=== PATIENT | male | born 1980 | race American Indian/Alaskan Native ===

== ENCOUNTER 2017-02-20 03:04 | Emergency (ER) | payer BC, OTHER ==
[2017-02-20 09:10] VITALS: BP 138/74
[2017-02-20] MEDS ORDERED: XYLOCAINE TOPICAL 4% TP ONE (10:13)
[2017-02-20] MEDS ORDERED: PROCTOSOL-HC PR ONE (10:13)
--- NOTE | 2017-02-20 10:18 | Emergency Department Report ---
ED General Adult HPI - General Chief complaint: Rectal Pain Stated complaint: HEMORRHOID PAIN Time Seen by Provider: 02/20/17 09:08 Source: patient Mode of arrival: Ambulatory Limitations: No Limitations - History of Present Illness Initial comments: This is a 36-year-old male. He is previously unknown to me. He works as a driver lifter of sanitation truck. The patient presents to the ER with a painful hemorrhoid for 3 days. The pain is sharp. It increases with palpation. It decreases with rest. There is no trauma. There is no dyschezia. The patient denies receptive anal intercourse. He denies other complaints. -: Gradual Location: pelvis Severity scale (0 -10): 10 Quality: aching Consistency: constant Improves with: rest Worsens with: movement Associated Symptoms: denies other symptoms - Related Data Previous Rx's Medication Instructions Recorded Last Taken Type Cyclobenzaprine HCl [Flexeril 5 MG 5 mg PO TID PRN #21 tab 05/09/16 Unknown Rx TAB] Ibuprofen [Motrin 800 MG tab] 800 mg PO Q8HR PRN #30 tablet 05/09/16 Unknown Rx Hydrocortisone [Anucort-HC SUPPOS] 25 mg RC BID #20 supp.rect 02/20/17 Unknown Rx Lidocaine [Lidocaine GEL] 113 gm TP QID PRN #1 gel..gram. 02/20/17 Unknown Rx Allergies Allergy/AdvReac Type Severity Reaction Status Date / Time No Known Allergies Allergy Unverified 05/09/16 10:03 ED Review of Systems ROS: Stated complaint: HEMORRHOID PAIN Other details as noted in HPI Constitutional: denies: fever Eyes: denies: vision change ENT: denies: epistaxis Respiratory: denies: cough Cardiovascular: denies: chest pain Gastrointestinal: denies: abdominal pain, hematemesis, melena, hematochezia Genitourinary: as per HPI Musculoskeletal: denies: back pain Skin: lesions (rectal hemorrhoid) Neurological: denies: weakness Psychiatric: as per HPI ED Past Medical Hx - Past Medical History Previous Medical History?: No - Surgical History Past Surgical History?: No - Social History Smoking Status: Never Smoker Substance Use Type: None - Medications Home Medications: Home Medications Medication Instructions Recorded Confirmed Last Taken Type Cyclobenzaprine HCl [Flexeril 5 MG 5 mg PO TID PRN #21 tab 05/09/16 Unknown Rx TAB] Ibuprofen [Motrin 800 MG tab] 800 mg PO Q8HR PRN #30 tablet 05/09/16 Unknown Rx Hydrocortisone [Anucort-HC SUPPOS] 25 mg RC BID #20 supp.rect 02/20/17 Unknown Rx Lidocaine [Lidocaine GEL] 113 gm TP QID PRN #1 gel..gram. 02/20/17 Unknown Rx ED Physical Exam - General Limitations: No Limitations General appearance: alert, in no apparent distress - Head Head exam: Present: atraumatic, normocephalic - Eye Eye exam: Present: normal appearance, EOMI. Absent: nystagmus - ENT ENT exam: Present: normal exam, normal orophraynx, mucous membranes moist, normal external ear exam - Neck Neck exam: Present: normal inspection, full ROM. Absent: tenderness, meningismus - Respiratory Respiratory exam: Present: normal lung sounds bilaterally. Absent: respiratory distress, wheezes, rales, rhonchi, stridor, chest wall tenderness, accessory muscle use, decreased breath sounds, prolonged expiratory - Cardiovascular Cardiovascular Exam: Present: regular rate, normal rhythm, normal heart sounds. Absent: bradycardia, tachycardia, irregular rhythm, systolic murmur, diastolic murmur, rubs, gallop - GI/Abdominal GI/Abdominal exam: Present: soft, normal bowel sounds. Absent: distended, tenderness, guarding, rebound, rigid, pulsatile mass - Rectal Rectal exam: Present: normal inspection, hemorrhoids (there is a thrombosed external hemorrhoid at approximately 7:00.), other (escorted by SHALONDA Kaur) - Extremities Exam Extremities exam: Present: normal inspection, full ROM, normal capillary refill. Absent: pedal edema, joint swelling, calf tenderness - Back Exam Back exam: Present: normal inspection, full ROM. Absent: tenderness, CVA tenderness (R), CVA tenderness (L), muscle spasm, paraspinal tenderness, vertebral tenderness - Neurological Exam Neurological exam: Present: alert, oriented X3, normal gait, other (Extraocular movements intact. Tongue midline. No facial droop. Facial sensation intact to light touch in the V1, V2, V3 distribution bilaterally. 5 and 5 strength in 4 extremities.. Sensation is intact to light touch in 4 extremities.). Absent : motor sensory deficit - Psychiatric Psychiatric exam: Present: normal affect, normal mood - Skin Skin exam: Present: warm, dry, intact, normal color. Absent: rash ED Course Vital Signs 02/20/17 02/20/17 03:12 09:07 Temperature 97.8 F 98.1 F Pulse Rate 89 78 Respiratory 20 16 Rate Blood Pressure 153/99 Blood Pressure 138/74 [Left] O2 Sat by Pulse 99 100 Oximetry ED Medical Decision Making - Lab Data Vital Signs 02/20/17 02/20/17 03:12 09:07 Temperature 97.8 F 98.1 F Pulse Rate 89 78 Respiratory 20 16 Rate Blood Pressure 153/99 Blood Pressure 138/74 [Left] O2 Sat by Pulse 99 100 Oximetry - Medical Decision Making Differential diagnosis: Thrombosed external hemorrhoid, incidental elevated blood pressure Assessment and plan: 36-year-old male with probable thrombosed external hemorrhoid. He is otherwise afebrile with reassuring vital signs. He is defecating normally. He has no other symptoms. He is given Anusol, and topical lidocaine. He is instructed on how to perform/ set up a sitz bath. He will be discharged with Anusol prescription, and topical lidocaine. The thrombosed hemorrhoid is very close to the sphincter, therefore he can follow-up with an outpatient general surgeon to have it excised. There does not appear to be any emergent condition at this time. Patient will be discharged. Return precautions are reviewed. Critical care attestation.: If time is entered above; I have spent that time in minutes in the direct care of this critically ill patient, excluding procedure time. ED Disposition Clinical Impression: External hemorrhoid Disposition: [id number] TO HOME OR SELFCARE Is pt being admited?: No Does the pt Need Aspirin: No Condition: Stable Instructions: Hemorrhoids (ED) Additional Instructions: Use the medications as directed. Set up a sitz bath as often as as needed as we discussed. Eat plenty of fruits, fibers, green vegetables. Follow up with any of the listed general surgeons to have the thrombosed external hemorrhoid incised and drained. Return to the ER right away with fevers, chills, chest pain, shortness of breath , confusion, intractable nausea or vomiting, inability to tolerate liquid feeds , new, worsening or different symptoms. Prescriptions: Hydrocortisone [Anucort-HC SUPPOS] 25 mg RC BID #20 supp.rect Lidocaine [Lidocaine GEL] 113 gm TP QID PRN #1 gel..gram. PRN Reason: Pain Referrals: PRIMARY CARE, [Primary Care Provider] - 3-5 Days HOSSEIN RYDER MD [Staff Physician] - 3-5 Days RAY CALDERON MD [Staff Physician] - 3-5 Days JOSE C NAPOLES MD [Staff Physician] - 3-5 Days JESSICA PUGH MD [Staff Physician] - 3-5 Days
== END 2017-02-20 11:00 | disposition home or self-care (01) ==
LOC: ED 03:04
DX: K64.4 Residual hemorrhoidal skin tags (principal)
CPT/HCPCS: 99283